=== PATIENT | male | born 1995 | race Caucasian/White ===

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

== ENCOUNTER 2018-03-05 04:49 | Emergency (ER) | END 2018-03-05 07:37 | disposition home or self-care (01) ==

== ENCOUNTER 2018-08-07 01:01 | Emergency (ER) | payer OTHER ==
[~2018-08-07] VITALS: Ht 177.8 cm; Wt 109.8 kg
[~2018-08-07 01:01] MED LIST changes: +FAMO-96 PO; +HYDR-4011 PO; -IBUP800T25 PO; +IBUP800T48 PO; +NAPR-985 PO; -PEN500 PO; +PENI500T PO
[2018-08-07 01:12] VITALS: BP 134/78; PULSE 83; RESP 19; Ht 177.8 cm; Wt 109.8 kg
[2018-08-07] MEDS ORDERED: ONDANSETRON (ODT) 4 MG TAB ODT STA (02:12)
[2018-08-07] MEDS ORDERED: LIDOCAINE/MYLANTA 40 ML BTL PO ONE (02:30)
--- NOTE | 2018-08-07 02:35 | ERD ---
ER Documentation Chief Complaint Chief Complaint C/O EPIGASTRIC AP SINCE LAST NIGHT HPI This is a 22-year-old male who presents emergency department with complaints of epigastric pain that started last night. Stated that he has this last year with negative ultrasound. Also stated that he is concerned because he has family history of gallstones. Denies headache, head injury, loss of consciousness, dizziness, neck pain, neck stiffness, throat pain, difficulty swallowing, difficulty breathing lying flat, shoulder pain, chest pain, back pain, nausea, vomiting, constipation, diarrhea, urinary symptoms, loss of bowel and bladder control, trauma, injury, falls, difficulty walking due to pain, numbness or tingling sensation, calf pain, recent travel, recent major surgery in the last 3 weeks, calf pain, recent long travel, recent exposure to any illness, recent antibiotic use in the last 3 months, fever, chills, seizures. Past medical history: Surgical history: Social: Denies smoking, use of alcoholic beverages, use of illegal drugs. ROS All systems reviewed and are negative except as per history of present illness. Medications Home Meds Active Scripts Famotidine* (Pepcid*) 20 Mg Tablet, 20 MG PO BID for 4 Days, #30 TAB Prov:CHRISTIAN MALLORY PA-C 03/05/18 Hydrocodone/Acetaminophen (Stillmore 5-325 Tablet) 1 Each Tablet, 1 TAB PO Q6H PRN for PAIN, #7 TAB Prov:CHRISTIAN MALLORY PA-C 03/05/18 Naproxen* (Naprosyn*) 500 Mg Tablet, 500 MG PO BID PRN for PAIN AND/OR INFLAMMATION, #30 TAB Prov:RIGOBERTO ARIZMENDI NP 09/06/16 Ibuprofen* (Motrin*) 800 Mg Tab, 800 MG PO Q6H PRN for PAIN AND OR ELEVATED TEMP, #30 TAB Prov:CHRISTIAN MALLORY PA-C 04/27/15 Acetaminophen* (Tylenol*) 325 Mg Tablet, 2 TAB PO Q8 PRN for PAIN AND OR ELEVATED TEMP, #20 TAB Prov:CHRISTIAN MALLORY PA-C 04/27/15 Penicillin V Potassium* (Penicillin V K*) 500 Mg Tab, 500 MG PO BID for 10 Days, TAB Prov:CHRISTIAN MALLORY PA-C 04/27/15 Allergies Allergies: Coded Allergies: No Known Allergy (Unverified , 03/05/18) PMhx/Soc History of Surgery: No Anesthesia Reaction: No Hx Neurological Disorder: No Hx Respiratory Disorders: No Hx Cardiac Disorders: No Hx Psychiatric Problems: No Hx Miscellaneous Medical Probl: No Hx Alcohol Use: No Hx Substance Use: No Hx Tobacco Use: Yes Physical Exam Vitals Vital Signs Date Temp Pulse Resp B/P (MAP) Pulse Ox O2 O2 Flow FiO2 Time Delivery Rate 08/07/18 98.2 83 19 134/78 99 01:12 (96) Physical Exam Const: No acute distress Head: Atraumatic Eyes: Normal Conjunctiva ENT: Normal External Ears, Nose and Mouth. Neck: Full range of motion. No meningismus. Resp: Clear to auscultation bilaterally Cardio: Regular rate and rhythm, no murmurs Abd: Soft, non tender, non distended. Normal bowel sounds. Has right upper abdominal tenderness to light and deep palpation. Negative Lauren sign (heel jar test). Negative psoas sign. Negative Rovsing sign. No CVA tenderness. Able to jump 10 times without developing lower abdominal pain. Skin: No petechiae or rashes Back: No midline or flank tenderness Ext: No cyanosis, or edema Neur: Awake and alert. No neurological deficits. Psych: Normal Mood and Affect Result Diagram: 08/07/18 0248 08/07/18 0248 Results 24 hrs Laboratory Tests Test 08/07/18 02:48 White Blood Count 14.3 10^3/ul Red Blood Count 5.50 10^6/ul Hemoglobin 16.0 g/dl Hematocrit 47.8 % Mean Corpuscular Volume 86.9 fl Mean Corpuscular Hemoglobin 29.1 pg Mean Corpuscular Hemoglobin Concent 33.5 g/dl Red Cell Distribution Width 12.6 % Platelet Count 264 10^3/UL Mean Platelet Volume 9.0 fl Immature Granulocytes % 1.000 % Neutrophils % 75.0 % Lymphocytes % 16.3 % Monocytes % 6.2 % Eosinophils % 1.0 % Basophils % 0.5 % Nucleated Red Blood Cells % 0.0 /100WBC Immature Granulocytes # 0.140 10^3/ul Neutrophils # 10.7 10^3/ul Lymphocytes # 2.3 10^3/ul Monocytes # 0.9 10^3/ul Eosinophils # 0.1 10^3/ul Basophils # 0.1 10^3/ul Nucleated Red Blood Cells # 0.0 10^3/ul Urine Color STRAW Urine Clarity CLEAR Urine pH 6.0 Urine Specific [place] 1.016 Urine Ketones NEGATIVE mg/dL Urine Nitrite NEGATIVE mg/dL Urine Bilirubin NEGATIVE mg/dL Urine Urobilinogen NEGATIVE mg/dL Urine Leukocyte Esterase NEGATIVE Sukumar/ul Urine Hemoglobin NEGATIVE mg/dL Urine Glucose NEGATIVE mg/dL Urine Total Protein NEGATIVE mg/dl Sodium Level 139 mmol/L Potassium Level 4.2 mmol/L Chloride Level 100 mmol/L Carbon Dioxide Level 27 mmol/L Anion Gap 12 Blood Urea Nitrogen 11 mg/dl Creatinine 0.75 mg/dl Est Glomerular Filtrat Rate mL/min > 60 mL/min Glucose Level 109 mg/dl Calcium Level 10.2 mg/dl Total Bilirubin 0.5 mg/dl Direct Bilirubin 0.00 mg/dl Indirect Bilirubin 0.5 mg/dl Aspartate Amino Transf (AST/SGOT) 26 IU/L Alanine Aminotransferase (ALT/SGPT) 24 IU/L Alkaline Phosphatase 92 IU/L Total Protein 8.7 g/dl Albumin 4.9 g/dl Globulin 3.80 g/dl Albumin/Globulin Ratio 1.28 Amylase Level 105 U/L Lipase 81 U/L Current Medications Medications Dose Sig/Blanca Start Time Status Last (Trade) Ordered Route PRN Stop Time Admin Dose Reason Admin Ondansetron 4 mg ONCE STAT 08/07/18 DC 08/07/18 HCl (Zofran ODT 02:12 02:49 Odt) 08/07/18 02:14 40 ml ONCE ONCE 08/07/18 DC 08/07/18 Miscellaneous PO 02:30 02:50 Medication 08/07/18 02:31 (Gi Cocktail (2)) 1 tab ONCE ONCE 08/07/18 Acetaminophen PO 04:30 / 08/07/18 04:31 Hydrocodone Bitart (Stillmore ()) Procedures/MDM Diagnostic tests: Urinalysis: Reviewed. Blood works: Reviewed. Abdominal ultrasound: Cholelithiasis without gallbladder wall thickening and no biliary duct dilation. Hepatomegaly with hepatic fatty infiltration. Unremarkable right kidney. Treatment: Zofran ODT. GI cocktail. Stillmore p.o. Re-evaluation: No episode of emesis here in the emergency department. Negative Valle sign. Negative Lauren sign (heel jar test). Negative psoas sign. Negative Rovsing sign. No CVA tenderness. Able to jump 5 times without developing lower abdominal pain. Differential diagnosis I have low suspicion for cholecystitis, pancreatitis, sepsis, diverticulitis, appendicitis, diverticulitis with abscess, obstructing kidney stone, nephrolithiasis, polynephritis, septic stone. Final diagnosis: Biliary colic. Cholelithiasis. Prescription: Tramadol. Motrin. Pepcid. Zofran. Follow-up with PCP in the next 24-48 hours. Come back here in the emergency department for any new symptoms or any worsening symptoms. All questions and concerns were answered. Patient and family members verbalized understanding and agreed with plan of care. Hemodynamically stable on discharge. Departure Diagnosis: Primary Impression: Cholelithiasis Additional Impression: Biliary colic Condition: Stable Additional Instructions: Follow-up with PCP in the next 24-48 hours. Come back here in the emergency department for any new symptoms or any worsening symptoms. MOLINA DICKINSON Aug 07, 2018 02:35
[2018-08-07] MEDS ORDERED: ONDA4TAB8 PO (04:24)
[2018-08-07] MEDS ORDERED: FAMO-96 PO (04:24)
[2018-08-07] MEDS ORDERED: TRAM50TA2 PO (04:25)
[2018-08-07] MEDS ORDERED: IBUP800T48 PO (04:25)
[2018-08-07] MEDS ORDERED: HYDROCODONE/APAP (10/325) TAB PO ONE (04:30)
== END 2018-08-07 04:50 | disposition home or self-care (01) ==
LOC: FTE 01:01
DX: K80.40 Calculus of bile duct with cholecystitis, unspecified, without obstruction (principal); Z87.891 Personal history of nicotine dependence
CPT/HCPCS: 76705; 80053; 81003; 82150; 83690; 85025; Z7502; Z7610

== ENCOUNTER 2018-09-17 06:24 | Emergency (ER) | payer OTHER ==
[~2018-09-17] VITALS: Wt 108.0 kg
[~2018-09-17 06:24] MED LIST changes: +ONDA4TAB8 PO; +TRAM50TA2 PO
[2018-09-17 06:28] VITALS: BP 125/75; PULSE 71; RESP 20
[2018-09-17] MEDS ORDERED: LIDOCAINE/MYLANTA 40 ML BTL PO STA (06:52)
[2018-09-17] MEDS ORDERED: BELLADONNA/PHENOBARBITAL TAB PO STA (06:52)
[2018-09-17] MEDS ORDERED: FAMO-96 PO (06:55)
--- NOTE | 2018-09-17 10:13 | ERD ---
ER Documentation Chief Complaint Chief Complaint LUQ PAIN, NAUSEA AND DIARRHEA HPI 22-year-old male presenting with epigastric pain for last month. He states the same pain is been consistent and he has a history of gallstones. He states it does worsen after eating and has had no vomiting. No fevers. Has had some nausea and diarrhea. No bloody stools. Denies chest pain or shortness of breath. Has not taken medications for symptoms. Denies medical problems. NKDA. Surgical history denies. Social history smokes marijuana and cigarettes. ROS All systems reviewed and are negative except as per history of present illness. Medications Home Meds Active Scripts Famotidine* (Pepcid*) 20 Mg Tablet, 20 MG PO BID for 4 Days, #30 TAB Prov:CHRISTIAN MALLORY PA-C 09/17/18 Tramadol HCl (Tramadol HCl) 50 Mg Tablet, 50 MG PO Q6 PRN for SEVERE PAIN LEVEL 7-10, #20 TAB Prov:PASILAMOLINA GUERRERO F 08/07/18 Ibuprofen* (Motrin*) 800 Mg Tab, 800 MG PO Q6H PRN for PAIN AND OR ELEVATED TEMP , #30 TAB Prov:JACOBILAMOLINA GUERRERO F 08/07/18 Famotidine* (Pepcid*) 20 Mg Tablet, 20 MG PO DAILY for 30 Days, TAB Prov:JACOBILAMOLINA GUERRERO F 08/07/18 Ondansetron Hcl* (Zofran*) 4 Mg Tablet, 4 MG PO Q8H PRN for NAUSEA AND/OR VOMITING, #30 TAB Prov:JACOBMOLINA SWEET F 08/07/18 Famotidine* (Pepcid*) 20 Mg Tablet, 20 MG PO BID for 4 Days, #30 TAB Prov:CHRISTIAN MALLORY PA-C 03/05/18 Hydrocodone/Acetaminophen (Waterfall 5-325 Tablet) 1 Each Tablet, 1 TAB PO Q6H PRN for PAIN, #7 TAB Prov:CHRISTIAN MALLORY PA-C 03/05/18 Naproxen* (Naprosyn*) 500 Mg Tablet, 500 MG PO BID PRN for PAIN AND/OR INFLAMMATION, #30 TAB Prov:RIGOBERTO ARIZMENDI NP 09/06/16 Ibuprofen* (Motrin*) 800 Mg Tab, 800 MG PO Q6H PRN for PAIN AND OR ELEVATED TEMP, #30 TAB Prov:CHRISTIAN MALLORY PA-C 04/27/15 Acetaminophen* (Tylenol*) 325 Mg Tablet, 2 TAB PO Q8 PRN for PAIN AND OR ELEVATED TEMP, #20 TAB Prov:CHRISTIAN MALLORY PA-C 04/27/15 Penicillin V Potassium* (Penicillin V K*) 500 Mg Tab, 500 MG PO BID for 10 Days, TAB Prov:CHRISTIAN MALLORY PA-C 04/27/15 Allergies Allergies: Coded Allergies: No Known Allergy (Unverified , 09/17/18) PMhx/Soc Medical and Surgical Hx: pt denies Medical Hx, pt denies Surgical Hx History of Surgery: No Anesthesia Reaction: No Hx Neurological Disorder: No Hx Respiratory Disorders: No Hx Cardiac Disorders: No Hx Psychiatric Problems: No Hx Miscellaneous Medical Probl: No Hx Alcohol Use: No Hx Substance Use: No Hx Tobacco Use: No Smoking Status: Never smoker FmHx Family History: No diabetes, No coronary disease, No other Physical Exam Vitals Vital Signs Date Temp Pulse Resp B/P (MAP) Pulse Ox O2 O2 Flow FiO2 Time Delivery Rate 09/17/18 98.7 71 20 125/75 100 06:28 (92) Physical Exam GENERAL: The patient is well-appearing, well-nourished, in no acute distress HEENT: Atraumatic. Conjunctivae are pink. Pupils equal, round, and reactive to light. There is no scleral icterus. Tympanic membranes clear bilaterally. Oropharynx clear. NECK: C-spine is soft and supple. There is no meningismus. There is no cervical lymphadenopathy. No JVD. No bruits. No goiter. CHEST: Clear to auscultation bilaterally. There are no rales, wheezes or rhonchi. HEART: Regular rate and rhythm. No murmurs, clicks, rubs or gallops. ABDOMEN: Active bowel sounds. No distention. Very mild tenderness palpation epigastric region with no rebound tenderness. Results 24 hrs Current Medications Medications Dose Sig/Blanca Start Time Status Last (Trade) Ordered Route PRN Stop Time Admin Dose Reason Admin 40 ml ONCE STAT 09/17/18 DC 09/17/18 Miscellaneous PO 06:52 06:59 Medication 09/17/18 06:53 (Gi Cocktail (2)) Belladonna/ 2 tab ONCE STAT 09/17/18 DC 09/17/18 Phenobarbital PO 06:52 06:59 () 09/17/18 06:53 Procedures/MDM ER course: GI cocktail given ED. MDM: 22-year-old male presenting with epigastric pain. Patient's exam was almost negligible and I really felt that would work and imaging was not indicated. Patient likely has acid reflux versus occasional colic of gallstones however have low suspicion for choledocholithiasis, cholecystitis or cholangitis at this time. I offered patient the option of having blood work or imaging done however patient declined and stated that he would prefer to try medications first with close follow-up to the primary doctor and ER precautions. Feel that this is appropriate as patient's exam is essentially normal. I discussed the risks versus benefits of not doing exams in the ED patient understood and comply. Patient is discharged with supportive medications and strict ER precautions. All questions answered at discharge Departure Diagnosis: Primary Impression: Abdominal pain Condition: Stable Patient Instructions: Epigastric Pain (Uncertain Cause) Referrals: [facility] YOU HAVE RECEIVED A MEDICAL SCREENING EXAM AND THE RESULTS INDICATE THAT YOU DO NOT HAVE A CONDITION THAT REQUIRES URGENT TREATMENT IN THE EMERGENCY DEPARTMENT. FURTHER EVALUATION AND TREATMENT OF YOUR CONDITION CAN WAIT UNTIL YOU ARE SEEN IN YOUR DOCTORS OFFICE WITHIN THE NEXT 1-2 DAYS. IT IS YOUR RESPONSIBILITY TO MAKE AN APPOINTMENT FOR FOLOW-UP CARE. IF YOU HAVE A PRIMARY DOCTOR --you should call your primary doctor and schedule an appointment IF YOU DO NOT HAVE A PRIMARY DOCTOR YOU CAN CALL OUR PHYSICIAN REFERRAL HOTLINE AT IF YOU CAN NOT AFFORD TO SEE A PHYSICIAN YOU CAN CHOSE FROM THE FOLLOWING [facility] [address] [facility]. [facility] [address] [facility]. [facility] [address] [facility]. [facility] [address] [facility]. [facility] [address] [facility]. [facility]. [address] Additional Instructions: FOLLOW UP WITH YOUR PRIMARY CARE PHYSICIAN TOMORROW.Return to this facility if you are not improving as expected. CHRISTIAN MALLORY PA-C Sep 17, 2018 10:13
== END 2018-09-17 07:16 | disposition home or self-care (01) ==
LOC: FTE 06:24
DX: R10.12 Left upper quadrant pain (principal)
CPT/HCPCS: Z7502; Z7610; 99283

== ENCOUNTER 2019-03-25 20:41 | Emergency (ER) | payer OTHER ==
[~2019-03-25] VITALS: Ht 172.7 cm; Wt 108.0 kg
[~2019-03-25 20:41] MED LIST changes: +IBUP-1542 PO
[2019-03-25 21:15] VITALS: BP 145/86; PULSE 85; RESP 22; Ht 172.7 cm; Wt 108.0 kg
[2019-03-25] MEDS ORDERED: IBUPROFEN 600 MG TAB PO ONE (22:30)
== END 2019-03-26 00:03 | disposition home or self-care (01) ==
LOC: FTE 20:41
DX: S60.222A Contusion of left hand, initial encounter (principal); W22.8XXA Striking against or struck by other objects, initial encounter; Y92.9 Unspecified place or not applicable
CPT/HCPCS: 73130; Z7502; Z7610